=== PATIENT | female | born 1985 | race Two or more races ===

== ENCOUNTER 2018-08-15 02:17 | Emergency (ER) | payer MEDICAID ==
[~2018-08-15] VITALS: Ht 152.4 cm; Wt 43.1 kg
[~2018-08-15 02:17] MED LIST: BUPR8SUB18 SL; GABA-339 PO; HYDR-4683 PO
[2018-08-15 03:07] LABS: Basophils # (auto) 0 uL; Basophils % (auto) 0.6 % (0.0-2.0); Eosinophils # (auto) 0.1 uL; Hematocrit 40.7 % (36.0-46.0); Lymphocytes # (auto) 1.6 uL; Lymphocytes % (auto) 19.9 % (10.0-50.0); Mean Corpuscular Hemoglobin 31.9 pg (28.0-32.0); Mean Corpuscular Hgb Conc. 34.4 g/dL (32.0-36.0); Mean Corpuscular Volume 92.6 fL (80.0-100.0); Monocytes # (auto) 0.5 uL; Monocytes % (auto) 5.9 % (0.0-12.0); Neutrophils # (auto) 5.9 uL; Neutrophils % (auto) 72.6 % (37.0-80.0); Platelet Count (auto) 234 10^3/uL (140-450); Red Cell Distribution Width 12.7 % (11.8-14.3); White Blood Cell 8.1 10^3/uL (4.4-10.8)
[2018-08-15 03:24] LABS: Albumin 3.6 g/dL (3.4-5.0); BUN/Creatinine Ratio 18.1; Calcium 7.8 mg/dL (8.5-10.1); Potassium 3.7 mmol/L (3.5-5.1)
[2018-08-15 03:27] LABS: Bilirubin, Total 0.3 mg/dL (0.2-1.0); Total Protein 6.5 g/dL (6.4-8.2)
[2018-08-15 10:45] VITALS: BP 97/53
== END 2018-08-15 11:19 | disposition home or self-care (01) ==
LOC: EDBD 02:17 → ER 02:21
DX: G40.919 Epilepsy, unspecified, intractable, without status epilepticus (principal); J45.909 Unspecified asthma, uncomplicated; F17.210 Nicotine dependence, cigarettes, uncomplicated; F12.10 Cannabis abuse, uncomplicated; F15.10 Other stimulant abuse, uncomplicated; F11.10 Opioid abuse, uncomplicated; R42 Dizziness and giddiness
CPT/HCPCS: 36415; 70450; 80053; 85025

== ENCOUNTER 2019-09-26 15:45 | Inpatient (IN) | payer MEDICAID ==
[~2019-09-26] VITALS: Ht 170.2 cm; Wt 59.8 kg
[~2019-09-26 15:45] MED LIST changes: -HYDR-4683 PO; +HYDR-4833 PO
[2019-09-26] MEDS ORDERED: SODIUM CHLORIDE 0.9% 1,000 ML IV ONE ×2 (15:56)
[2019-09-26] MEDS ORDERED: MIDAZOLAM HCL 1MG/1ML-2 ML VIAL ONE ×2 (16:08→16:10)
[2019-09-26] MEDS ORDERED: MIDAZOLAM HCL 5 MG/ML-1ML VIAL ONE (16:25)
[2019-09-26] MEDS ORDERED: ETOMIDATE (2MG/ML) 20ML VIAL IV ONE (16:32)
[2019-09-26] MEDS ORDERED: MIDAZOLAM HCL 5 MG/ML-1ML VIAL IV ONE (16:45)
[2019-09-26] MEDS ORDERED: MIDAZOLAM HCL 1MG/1ML-2 ML VIAL IM ONE (16:45)
[2019-09-26] MEDS ORDERED: NOREPINEPHRINE 8 MG/250ML KIT 250 ML IV ONE (16:58)
[2019-09-26] MEDS ORDERED: cefTRIAXone 1GM/50ML D5W 50 ML IV ONE (17:00)
[2019-09-26] MEDS ORDERED: CLINDAMYCIN 600MG IV 50 ML IV ONE (17:00)
[2019-09-26 17:12] LABS: Basophils # (auto) 0 10 ^3/uL (0-0.2); Basophils % (auto) 0.2 % (0.0-2.0); Eosinophils # (auto) 0 10 ^3/uL (0-0.8); Eosinophils % (auto) 0.4 % (0.0-7.0); Hemoglobin 10.9 g/dL (12.2-16.2); Lymphocytes # (auto) 0.9 10 ^3/uL (0.4-5.4); Lymphocytes % (auto) 12.9 % (10.0-50.0); Mean Corpuscular Hemoglobin 33.4 pg (28.0-32.0); Mean Corpuscular Hgb Conc. 34.1 g/dL (32.0-36.0); Mean Corpuscular Volume 98.1 fL (80.0-100.0); Monocytes # (auto) 0.2 10 ^3/uL (0-1.3); Monocytes % (auto) 2.9 % (0.0-12.0); Neutrophils # (auto) 5.9 10 ^3/uL (1.6-8.6); Neutrophils % (auto) 83.6 % (37.0-80.0); Nucleated Red Blood Cells % 0.1 %; Platelet Count (auto) 347 10^3/uL (140-450); Red Blood Cells 3.26 10^6/uL (4.0-5.20); Red Cell Distribution Width 12.9 % (11.8-14.3); White Blood Cell 7.1 10^3/uL (4.4-10.8)
[2019-09-26] MEDS ORDERED: NOREPINEPHRINE 8 MG/250ML KIT 250 ML IV SCH (17:15)
[2019-09-26 17:28] LABS: Albumin 2.4 g/dL (3.4-5.0); Anion Gap 10 (5-15); Blood Urea Nitrogen 9 mg/dL (7-18); Calcium 7.7 mg/dL (8.5-10.1); Carbon Dioxide 21 mmol/L (21-32); Chloride 111 mmol/L (98-107); Glucose 159 mg/dL (74-106); Potassium 3.1 mmol/L (3.5-5.1); Sodium 142 mmol/L (136-145)
[2019-09-26 17:34] LABS: Alanine Aminotransferase 25 U/L (13-56); Alkaline Phosphatase 147 U/L (45-117); Aspartate Aminotransferase 23 U/L (15-37); BUN/Creatinine Ratio 10.1; Bilirubin, Total < 0.1 mg/dL (0.2-1.0); GFR African American 93 mL/min; GFR Non-African American 77 mL/min; Total Protein 6.2 g/dL (6.4-8.2)
[2019-09-26] MEDS ORDERED: diphenhdrAMINE HCL 50 MG/1 ML VL ONE (17:57)
[2019-09-26] MEDS ORDERED: MAGNESIUM SULFATE 1GM/100ML 100 ML IV ONE (18:00)
[2019-09-26] MEDS ORDERED: POTASSIUM CHL 20MEQ/100ML 100 ML IV ONE (18:00)
[2019-09-26] MEDS ORDERED: diphenhdrAMINE HCL 50 MG/1 ML VL IV ONE ×2 (18:00→18:45)
[2019-09-26] MEDS: SOD CHL 0.9%/ KCL 40MEQ 1,000 ML IV SCH (18:00)
[2019-09-26] MEDS ORDERED: ACETAMINOPHEN 325 MG TAB PO PRN (19:45)
[2019-09-26] MEDS ORDERED: LORazepam 2MG/ML-1ML VIAL ONE (19:55)
[2019-09-26] MEDS ORDERED: LORazepam 2MG/ML-1ML VIAL IV ONE (20:00)
[2019-09-26] MEDS: [UNRECOGNIZED DRUG - OTHER] SL SCH (20:45)
[2019-09-26] MEDS ORDERED: LORazepam 2MG/ML-1ML VIAL IV PRN ×2 (20:45→21:45)
[2019-09-26 20:59] LABS: Urine Bacteria NONE SEEN /hpf (None Seen); Urine Blood Negative /uL (Negative); Urine Specific Gravity 1.015 (1.001-1.035); Urine WBC 2 /hpf (0 - 5)
[2019-09-26 21:28] LABS: Amphetamine Screen, Urine NEGATIVE (NEGATIVE); Barbiturate Scree,Urine NEGATIVE (NEGATIVE); Benzodiazephine Screen, Urine POSITIVE (NEGATIVE); Cannabinoid Screen, Urine NEGATIVE (NEGATIVE); Cocaine Screen, Urine NEGATIVE (NEGATIVE); Opiate Scree,Urine NEGATIVE (NEGATIVE); Phencyclidine Screen, Urine NEGATIVE (NEGATIVE)
[2019-09-26] MEDS ORDERED: NITROGLYCERIN 0.4 MG SL TAB SL PRN ×2 (21:30→22:00)
[2019-09-26] MEDS ORDERED: MORPHINE SULF INJ 2 MG/ML SYRINGE 1ML IV PRN ×3 (21:30→22:00)
[2019-09-26 21:36] LABS: Alcohol, Urine < 3.0 mg/dL (0-10)
[2019-09-26] MEDS ORDERED: DOCUSATE SOD 100 MG CAP PO PRN (22:00)
[2019-09-26] MEDS ORDERED: ONDANSETRON HCL 4 MG/2 ML VIAL IV PRN (22:00)
[2019-09-26] MEDS ORDERED: ALUM & MAG HYDROX-SIMETH LIQ(MAALOX) 30 ML PO PRN (22:00)
[2019-09-26] MEDS ORDERED: HYDROcodone-ACET 5/325MG TAB PO PRN (22:00)
[2019-09-26] MEDS ORDERED: LORazepam 0.5 MG TAB PO PRN (22:00)
[2019-09-26] MEDS: CLINDAMYCIN 300MG IV 50 ML IV SCH (22:40)
[2019-09-26] MEDS ORDERED: IOHEXOL 350 MG/ML 100ML IJ ONE (23:05)
[2019-09-27] MEDS: SOD CHL 0.9%/ KCL 40MEQ 1,000 ML IV SCH ×2 (04:14→10:42)
[2019-09-27] MEDS: [UNRECOGNIZED DRUG - OTHER] SL SCH ×3 (05:14→20:45)
[2019-09-27] MEDS: CLINDAMYCIN 300MG IV 50 ML IV SCH (06:00)
[2019-09-27 07:15] LABS: Basophils # (auto) 0.1 10 ^3/uL (0-0.2); Basophils % (auto) 0.9 % (0.0-2.0); Eosinophils # (auto) 0.1 10 ^3/uL (0-0.8); Eosinophils % (auto) 0.8 % (0.0-7.0); Hematocrit 34.3 % (36.0-46.0); Hemoglobin 11.7 g/dL (12.2-16.2); Lymphocytes % (auto) 26.7 % (10.0-50.0); Mean Corpuscular Hemoglobin 33.3 pg (28.0-32.0); Mean Corpuscular Hgb Conc. 34.2 g/dL (32.0-36.0); Mean Corpuscular Volume 97.4 fL (80.0-100.0); Monocytes # (auto) 0.5 10 ^3/uL (0-1.3); Monocytes % (auto) 6.4 % (0.0-12.0); Neutrophils # (auto) 4.8 10 ^3/uL (1.6-8.6); Neutrophils % (auto) 65.2 % (37.0-80.0); Nucleated Red Blood Cells % 0.1 %; Platelet Count (auto) 403 10^3/uL (140-450); Red Blood Cells 3.52 10^6/uL (4.0-5.20); White Blood Cell 7.3 10^3/uL (4.4-10.8)
[2019-09-27 07:45] LABS: Potassium 4.3 mmol/L (3.5-5.1)
[2019-09-27 07:46] LABS: INR 1.06 (0.9-1.15); Partial Thromboplastin Time 26.8 sec (23.64-32.05)
[2019-09-27 07:59] LABS: Albumin 2.1 g/dL (3.4-5.0); BUN/Creatinine Ratio 16.7; Bilirubin, Total 0.2 mg/dL (0.2-1.0); Calcium 7.3 mg/dL (8.5-10.1); Magnesium 2.2 mg/dL (1.6-2.6); Phosphorus 2.7 mg/dL (2.5-4.90); Total Protein 5.5 g/dL (6.4-8.2)
[2019-09-27] MEDS: ENOXAPARIN SOD 40 MG/0.4 ML SYRINGE SC SCH (10:00)
[2019-09-27] MEDS: levoFLOXacin 500MG 100 ML IV SCH (10:29)
[2019-09-27] MEDS ORDERED: ALBUMIN 25% 100 ML IV ONE (14:00)
[2019-09-27] MEDS: SODIUM CHLORIDE 0.9% 1,000 ML IV SCH (14:12)
[2019-09-27] MEDS: GABAPENTIN 400 MG CAP PO SCH ×2 (14:29→23:33)
--- NOTE | 2019-09-27 23:03 | NUR ---
Telemetry admit from [facility] admitted to Telemetry unit after SBAR received. Patient oriented to Minda Borden, primary RN, unit, room, bed, and unit policies regarding patient care and visiting hours. Patient now on continuous telemetry monitoring, tele box # [id number] and telemetry reading on arrival to unit is sinus bradycardia. Patient weighed by bedscale and encouraged to call if they need something. All questions and concerns addressed, patient verbalized understanding.
[2019-09-27] MEDS: ALBUMIN 25% 50 ML IV SCH (23:31)
[2019-09-27 23:54] VITALS: BP 119/68
[2019-09-28] MEDS: SODIUM CHLORIDE 0.9% 1,000 ML IV SCH (03:28)
[2019-09-28 05:00] VITALS: BP 125/75
[2019-09-28] MEDS: [UNRECOGNIZED DRUG - OTHER] SL SCH (05:08)
[2019-09-28] MEDS: ALBUMIN 25% 50 ML IV SCH (05:53)
[2019-09-28] MEDS: GABAPENTIN 400 MG CAP PO SCH (05:57)
--- NOTE | 2019-09-28 06:05 | NUR ---
Patient refused tele psych consult and states she wanted to go home.
--- NOTE | 2019-09-28 06:40 | NUR ---
MRSA swab sent.
--- NOTE | 2019-09-28 07:15 | NUR ---
Care endorsed to Tawny HUGO.
--- NOTE | 2019-09-28 08:00 | NUR ---
OPENING SHIFT NOTE ASSUMED CARE OF PATIENT AWAKE AND ALERT. NO S/S OF DISTRESS NOTED OR COMPLAINTS OF PAIN. PATIENT UPDATED ON POC FOR THE DAY AND ALL QUESTIONS ANSWERED. BED IS IN LOWEST, LOCKED POSITION WITH SIDE RAILS UP X2 AND CALL LIGHT WITHIN REACH. WILL CONTINUE TO MONITOR Q1H AND PRN.
--- NOTE | 2019-09-28 08:39 | NUR ---
URINALYSIS FRESH SPECIMEN OBTAINED FROM PATIENT'S ESCALANTE AND SENT TO LAB.
[2019-09-28 09:00] VITALS: BP 105/70
[2019-09-28 09:00] LABS: Urine Bacteria NONE SEEN /hpf (None Seen); Urine Blood Negative /uL (Negative); Urine Specific Gravity 1.009 (1.001-1.035); Urine WBC 1 /hpf (0 - 5)
[2019-09-28 09:08] LABS: Alcohol, Urine < 3.0 mg/dL (0-10); Amphetamine Screen, Urine NEGATIVE (NEGATIVE); Barbiturate Scree,Urine NEGATIVE (NEGATIVE); Benzodiazephine Screen, Urine NEGATIVE (NEGATIVE); Cannabinoid Screen, Urine NEGATIVE (NEGATIVE); Cocaine Screen, Urine NEGATIVE (NEGATIVE); Opiate Scree,Urine NEGATIVE (NEGATIVE); Phencyclidine Screen, Urine NEGATIVE (NEGATIVE)
--- NOTE | 2019-09-28 09:20 | NUR ---
GRAPE CRUSHER AT BEDSIDE YONAS AT BEDSIDE EVALUATING PATIENT.
[2019-09-28] MEDS: levoFLOXacin 500MG 100 ML IV SCH (09:54)
[2019-09-28] MEDS: ENOXAPARIN SOD 40 MG/0.4 ML SYRINGE SC SCH (09:54)
[2019-09-28 10:07] LABS: Eosinophils # (auto) 0.2 10 ^3/uL (0-0.8); Hemoglobin 10.4 g/dL (12.2-16.2); Lymphocytes # (auto) 1.6 10 ^3/uL (0.4-5.4); Mean Corpuscular Hemoglobin 34.1 pg (28.0-32.0); Mean Corpuscular Hgb Conc. 34.8 g/dL (32.0-36.0); Mean Corpuscular Volume 97.9 fL (80.0-100.0); Monocytes # (auto) 0.2 10 ^3/uL (0-1.3); Neutrophils # (auto) 3.8 10 ^3/uL (1.6-8.6)
--- NOTE | 2019-09-28 10:08 | NUR ---
Negro catheter dc'd Order to discontinue negro catheter. Negro dc'd with clean technique following deflation of balloon. Patient tolerated well with no complaints of pain. Continue care.
[2019-09-28 10:09] LABS: Basophils # (auto) 0.1 10 ^3/uL (0-0.2); Basophils % (auto) 1.7 % (0.0-2.0); Eosinophils % (auto) 3.1 % (0.0-7.0); Hematocrit 29.9 % (36.0-46.0); Lymphocytes % (auto) 27.1 % (10.0-50.0); Monocytes % (auto) 2.6 % (0.0-12.0); Neutrophils % (auto) 65.5 % (37.0-80.0); Platelet Count (auto) 338 10^3/uL (140-450); Red Blood Cells 3.05 10^6/uL (4.0-5.20); Red Cell Distribution Width 13.1 % (11.8-14.3); White Blood Cell 5.9 10^3/uL (4.4-10.8)
[2019-09-28 10:24] LABS: Potassium 3.8 mmol/L (3.5-5.1)
[2019-09-28 10:30] LABS: Albumin 2.6 g/dL (3.4-5.0); BUN/Creatinine Ratio 16.7; Bilirubin, Total 0.2 mg/dL (0.2-1.0); Calcium 8.2 mg/dL (8.5-10.1); Total Protein 5.5 g/dL (6.4-8.2)
--- NOTE | 2019-09-28 12:44 | NUR ---
Discharge instructions given as ordered. Encourage to follow up with PMD as instructed. All questions and concerns addressed. Patient verbalized understanding. Home medications held in Pharmacy returned to patient. Central line removed with catheter intact, pressure dressing applied. Telemetry unit returned to ICU. Patient taken to vehicle via wheelchair with all personal belongings, accompanied by staff. No distress noted at time of departure.
--- NOTE | 2019-09-28 18:00 | NUR ---
CALL REC'D FROM [facility]CRO[facility]OLOGY. BLOOD CULTURES POSITIVE FOR [employer]. PT WAS DISCHARGED WITH RX FOR LEVAQUIN. CHECKED WITH [employer] ANALYST; LEVAQUIN WILL COVER ORGANISM.
== END 2019-09-28 12:45 | disposition home or self-care (01) | DRG 561 ==
LOC: ER 15:45 → EDBD 15:45 → TELE 15:46 → TELE-WESTW 09-27 22:59
PROVIDERS: ADMIT Hospitalist; ATTEND Hospitalist
PROC: 05HY33Z Insertion of Infusion Device into Upper Vein, Percutaneous Approach (ICD-10-PCS; principal; 2019-09-26)
DX: O99.355 Diseases of the nervous system complicating the puerperium (principal); J69.0 Pneumonitis due to inhalation of food and vomit; E43 Unspecified severe protein-calorie malnutrition; G93.41 Metabolic encephalopathy; O85 Puerperal sepsis; D64.9 Anemia, unspecified; O90.81 Anemia of the puerperium; O25.3 Malnutrition in the puerperium; F11.20 Opioid dependence, uncomplicated; O99.325 Drug use complicating the puerperium; F17.210 Nicotine dependence, cigarettes, uncomplicated; O99.335 Smoking (tobacco) complicating the puerperium; F41.9 Anxiety disorder, unspecified; O99.345 Other mental disorders complicating the puerperium; G40.401 Other generalized epilepsy and epileptic syndromes, not intractable, with status epilepticus; O90.89 Other complications of the puerperium, not elsewhere classified; I95.0 Idiopathic hypotension; O99.315 Alcohol use complicating the puerperium; F19.10 Other psychoactive substance abuse, uncomplicated; E87.6 Hypokalemia; J45.909 Unspecified asthma, uncomplicated; O99.53 Diseases of the respiratory system complicating the puerperium; Z79.899 Other long term (current) drug therapy; Z80.0 Family history of malignant neoplasm of digestive organs; Z85.038 Personal history of other malignant neoplasm of large intestine; Z72.89 Other problems related to lifestyle
CPT/HCPCS: 36415; 36569; 70450; 71250; 71275; 80053; 80307; 81001; 82085; 82550; 83605; 83735; 84100; 84146; 84443; 84484; 85025; 85379; 85610; 85730; 87040; 87081; 99291; G0378; J0696; J1956; J2250; J3480; J3490; J7060; P9047

== ENCOUNTER 2020-11-12 19:49 | Emergency (ER) | payer MEDICAID ==
[~2020-11-12] VITALS: Ht 157.5 cm; Wt 47.2 kg
[2020-11-12 19:50] VITALS: BP 125/75
== END 2020-11-13 00:34 | disposition home or self-care (01) ==
LOC: ER 19:49
DX: S80.12XA Contusion of left lower leg, initial encounter (principal); F15.10 Other stimulant abuse, uncomplicated; J45.909 Unspecified asthma, uncomplicated; Z88.6 Allergy status to analgesic agent; Z88.1 Allergy status to other antibiotic agents; Z79.899 Other long term (current) drug therapy; Z98.890 Other specified postprocedural states; X58.XXXA Exposure to other specified factors, initial encounter; Y93.89 Activity, other specified; Y92.89 Other specified places as the place of occurrence of the external cause; Y99.8 Other external cause status
CPT/HCPCS: 93971